=== PATIENT | male | born 1930 | race Caucasian/White ===

== ENCOUNTER → 2016-12-19 | Outpatient (CLI) | payer BC ==
[~2016-12-19] VITALS: Ht 167.6 cm; Wt 71.1 kg
[~2016-12-19] MED LIST: DUTA0.5C PO; LEVOXYL PO; LXP/20 PO; OMEP20CA9 PO
[2016-12-19 13:29] VITALS: BP 101/64; PULSE 79; Ht 167.6 cm; Wt 71.1 kg
== END | disposition home or self-care (01) ==
LOC: C.NEUR 13:18
PROVIDERS: ATTEND Internal Medicine Pulmonary Disease
DX: G47.30 Sleep apnea, unspecified (principal)

== ENCOUNTER → 2016-12-26 | Outpatient (CLI) | payer BC | END | disposition home or self-care (01) | LOC: C.RC 17:02 | PROVIDERS: ATTEND Physician Assistant | DX: G47.30 Sleep apnea, unspecified (principal); R53.83 Other fatigue ==

== ENCOUNTER → 2017-03-31 | Outpatient (CLI) | payer BC ==
[~2017-03-31] VITALS: Ht 170.2 cm; Wt 68.0 kg
[2017-03-31 13:25] VITALS: BP 115/74; PULSE 81; Ht 170.2 cm; Wt 68.0 kg
== END | disposition home or self-care (01) ==
LOC: C.NEUR 12:18
PROVIDERS: ATTEND Physician Assistant
DX: G47.30 Sleep apnea, unspecified (principal)

== ENCOUNTER → 2017-06-23 | Outpatient (CLI) | payer BC ==
--- NOTE | 2017-06-23 11:26 | DIAGNOSTIC IMAGING REPORT ---
CHEST 2 VIEWS ROUTINE CLINICAL HISTORY: R05 [id number] COMPARISON STUDY: 03/31/2014 FINDINGS: The cardiac and mediastinal contours remain stable. There is a left subclavian dual-chamber central venous pacemaker. There is no failure. There is no focal pulmonary consolidation. There are no pleural effusions.[ IMPRESSION: No active disease in the chest. Electronically signed by: Terrell Castillo M.D. 06/23/2017 11:25 AM Dictated Date/Time: 06/23/2017 11:25 AM
[2017-06-23 13:15] LABS: BASO % 0.4 %; BASO ABS # 0.03 K/uL (0-0.2); COMPLETE YES; EOS % 1.6 %; HEMATOCRIT 42.1 % (42-52); IG% 0.2 %; LYMPH % 21.1 %; LYMPH ABS # 1.79 K/uL (1.2-3.4); MEAN CELL VOLUME 98.1 fL (80-100); MEAN CORPUSCULAR HEMOGLOBIN 31.2 pg (25-34); MEAN CORPUSCULAR HGB CONC 31.8 g/dl (32-36); MEAN PLATELET VOLUME 10.9 fL (7.4-10.4); MONO % 10.4 %; NEUT % 66.3 %; PLATELET COUNT 232 K/uL (130-400); RED BLOOD COUNT 4.29 M/uL (4.7-6.1)
== END | disposition home or self-care (01) ==
LOC: C.RAD1850 11:10
PROVIDERS: ATTEND Physician Assistant
DX: R05 Cough (principal)

== ENCOUNTER 2017-08-12 07:25 | Emergency (ER) | payer BC ==
[~2017-08-12] VITALS: Ht 167.6 cm; Wt 63.0 kg
[2017-08-12] MEDS ORDERED: XYLOCAINE 1%/SOD BICARB 20 ML VIAL INFIL STA (07:32)
[2017-08-12 07:34] VITALS: TEMP 36.6; Ht 167.6 cm; Wt 63.0 kg
--- NOTE | 2017-08-12 07:42 | EMERGENCY ROOM VISIT NOTE ---
History Report prepared by Reza: Kathy Roawn Under the Supervision of: Dr. Jose Manuel Horn M.D. First contact with patient: 07:29 Stated Complaint: FALL History of Present Illness The patient is an 87 year old male who presents to the Emergency Room with complaints of a sudden fall that occurred prior to arrival. He currently rates his discomfort as a 1/10 in severity. Per EMS the patient arrives via ALS From the [facility] after a sudden fall. The patient states that he hit his head. He reports a headache and neck pain. The patient additionally notes right knee pain. He states that he is on Pradaxa. The patient stats that his Tetanus is up to date. Source of History: patient, EMS Onset: prior to arrival Position: other (global) Symptom Intensity: 10 Quality: other (fall) Timing: other (sudden) Associated Symptoms: + headache, + neck pain Note: Associated Symptoms: right knee pain Review of Systems See HPI for pertinent positives & negatives. A total of 10 systems reviewed and were otherwise negative. Past Medical & Surgical Medical Problems: (1) A-fib (2) Heart disease (3) Pneumonia Family History Diabetes mellitus Heart disease Social History Smoking Status: Never Smoker Smokeless Tobacco Use: No Alcohol Use: occasionally Marital Status: Housing Status: lives with significant other Occupation Status: retired Current/Historical Medications Scheduled Calcium Carbonate-Cholecalcife (Calcium Plus Vitamin D3), 1 CAP PO DAILY Dabigatran Etexilate Mesylate (Pradaxa), 1 CAP PO BID Dutasteride (Avodart), 0.5 MG PO DAILY Escitalopram Oxalate (Escitalopram Oxalate), 20 MG PO DAILY Flaxseed (Linseed) (Flaxseed Oil), 1 CAP PO DAILY Levothyroxine Sodium (Levothyroxine Sodium), 1 TAB PO DAILY Metoprolol Succ (Toprol Xl) (Toprol-Xl), 50 MG PO DAILY Omeprazole (Prilosec), 20 MG PO DAILY Allergies Coded Allergies: No Known Drug Allergy (Verified Allergy, Unknown, `, 08/12/17) Physical Exam Vital Signs Date Time Temp Pulse Resp B/P (MAP) Pulse Ox O2 Delivery O2 Flow Rate FiO2 08/12/17 08:46 87 16 119/71 94 08/12/17 08:31 87 16 119/71 94 Room Air 08/12/17 07:34 36.6 74 15 128/88 98 Room Air Physical Exam GENERAL: Patient is a healthy-appearing well-nourished male HEAD: 2, 2.6 cm lacerations to the left forehead with contusion. EYES: Ocular movements intact pupils equal and react to light OROPHARYNX mucous membranes are moist no exudates present no erythema or edema present NECK: Supple no nuchal rigidity CHEST: Good equal expansion LUNGS: Clear and equal to auscultation CARDIAC: Normal S1 and S2 ABDOMEN: Soft nontender no guarding BACK: No CVA tenderness EXTREMITIES: Good range of motion of the left knee, free from pain at ankle and hip No pain upon palpation normal muscle strength in all groups no clubbing cyanosis or edema NEURO: Patient is following commands and answering questions appropriately. Alert and oriented x3 Cranial Nerves 2-12 grossly intact Medical Decision & Procedures ER Provider Diagnostic Interpretation: CT results as stated below per my review and radiologist interpretation: HEAD WITHOUT CONTRAST (CT) CLINICAL HISTORY: 87 years-old Male presenting with Pt c/o hitting head, laceration and hematoma in the left anterior head. TECHNIQUE: Multidetector CT imaging of the head was performed without the use of intravenous contrast. IV contrast: None. A dose lowering technique was used consistent with the principles of ALARA (as low as reasonably achievable). COMPARISON: 03/31/2014. CT DOSE (mGy.cm): The estimated cumulative dose is 537.48 mGy.cm. FINDINGS: Freight Elevator Erector topogram: Unremarkable. Image quality limited by exclusion of the most inferior portions of the cerebellum. Proportional ventricular and sulcal prominence, likely age-related parenchymal volume loss. Periventricular and subcortical white matter hypoattenuation, nonspecific but likely indicative of chronic small vessel ischemic change. No mass effect or midline shift. No hemorrhage or acute territorial infarct. No extra-axial fluid collection. Paranasal sinuses and mastoid air cells clear. Calvarium intact. Left frontal subgaleal hematoma with overlying fascial subcutaneous tissue contusion and laceration. Absence of the [place] lenses. IMPRESSION: 1. No acute intracranial pathology. 2. Left frontal subgaleal hematoma, contusion, laceration. Electronically signed by: Jose Eduardo Kramer M.D. 08/12/2017 8:12 AM Dictated Date/Time: 08/12/2017 8:10 AM Medications Administered Medications (Trade) Dose Ordered Sig/Lissette Route Start Time Stop Time Status Last Admin Dose Admin Acetaminophen (Tylenol Tab) 1,000 mg NOW STAT PO 08/12/17 08:07 08/12/17 08:08 DC 08/12/17 08:31 1,000 MG Procedure Location: left forehead Total length: 2.6 cm Complexity: simple linear Verbal consent was obtained after the risks and benefits were explained, including but not limited to bleeding, scarring, infection, pain, and bone/joint /nerve damage. At this time, the risks of the procedure are less than the risks of NOT performing the procedure. A time out was taken and the correct patient and site identified. The skin was prepped with betadine. The target area was anesthetized with 4 ml of 1% lidocaine without epinephrine. Copious irrigation was performed using normal saline. The skin was re-prepped with betadine and a sterile field set. The wound was explored for foreign bodies and none found. Examination revealed no injury to deep structures such as tendons, bone, or significant blood vessels. Debridement was not performed. The wound edges were approximated using 3, 5-0 simple interrupted nylon sutures. Hemostasis and excellent approximation was achieved. Antibacterial ointment and a sterile dressing applied. Detailed wound care instructions and signs and symptoms of infection reviewed with the patient. No complications and the patient tolerated the procedure well. Location: left forehead Total length: 2.6 cm Complexity: simple linear Verbal consent was obtained after the risks and benefits were explained, including but not limited to bleeding, scarring, infection, pain, and bone/joint /nerve damage. At this time, the risks of the procedure are less than the risks of NOT performing the procedure. A time out was taken and the correct patient and site identified. The skin was prepped with betadine. The target area was anesthetized with 4 ml of 1% lidocaine without epinephrine. Copious irrigation was performed using normal saline. The skin was re-prepped with betadine and a sterile field set. The wound was explored for foreign bodies and none found. Examination revealed no injury to deep structures such as tendons, bone, or significant blood vessels. Debridement was not performed. The wound edges were approximated using 3, 5-0 simple interrupted nylon sutures. Hemostasis and excellent approximation was achieved. Antibacterial ointment and a sterile dressing applied. Detailed wound care instructions and signs and symptoms of infection reviewed with the patient. No complications and the patient tolerated the procedure well. ED Course 0730: Past medical records reviewed. The patient was evaluated in room A3. A complete history and physical examination was performed. 0732: Ordered Lidocaine HCl 20 ml INFIL. 0736: At this time I stapled the patient's head laceration. See procedure note for further detail. 0807: Ordered Tylenol Tab 1000 mg PO. 0818: I reevaluated the patient and he is resting comfortably. I discussed the exam findings with him and I discussed the treatment plan. He verbalized complete understanding and agreement. He is ready to go home. Medical Decision Differential diagnosis: Etiologies such as fracture, dislocation, intra-abdominal, pneumothorax, intrathoracic , intracranial, neurologic, as well as other traumatic pathologies were entertained. This is an 87-year-old male who presents emergency Department with a head contusion after falling out of bed this morning. The patient is neurologically intact however is on antiplatelet medication therefore he was sent for CAT scan of the head. This did not show any acute bleed. The patient did receive 1000 mg of Tylenol. His lacerations were closed as above. I felt that the patient was well enough to be discharged for follow-up with his primary care physician. Patient was in agreement with the treatment plan. Medication Reconcilliation Current Medication List: was personally reviewed by me Blood Pressure Screening Patient's blood pressure: Normal blood pressure Blood pressure disposition: Did not require urgent referral Impression Primary Impression: Contusion Additional Impressions: Laceration Fall Scribe Attestation The scribe's documentation has been prepared under my direction and personally reviewed by me in its entirety. I confirm that the note above accurately reflects all work, treatment, procedures, and medical decision making performed by me. Departure Information Dispostion Home / Self-Care Referrals Jose Eduardo Kulkarni M.D. (PCP) Forms HOME CARE DOCUMENTATION FORM, IMPORTANT VISIT INFORMATION, School Instructions, Work Instructions Patient Instructions ED Head Injury Closed, ED Laceration Sure Close, ED Scar Tips to Minimize, Falls Prevent Home, My [facility], Sutr Care Additional Instructions Sutures out in 7-10 days Return if you develop severe head pain, vomiting or loss of balance You have been examined and treated today on an emergency basis only. This is not a substitute for, or an effort to provide, complete comprehensive medical care. It is impossible to recognize and treat all injuries or illnesses in a single emergency department visit. It is therefore important that you follow up closely with Dr Kulkarni. Call as soon as possible for an appointment. Thank you for your time and consideration. I look forward to speaking with you again soon. Please don't hesitate to call us if you have any questions. Problem Qualifiers Primary Impression: Contusion Encounter type: initial encounter Contusion area: head Contusion of head detail: unspecified part of head Qualified Codes: S00.93XA - Contusion of unspecified part of head, initial encounter Additional Impressions: Fall Encounter type: initial encounter Qualified Codes: W19.XXXA - Unspecified fall, initial encounter
[2017-08-12] MEDS ORDERED: ACETAMINOPHEN 500 MG TAB PO STA (08:07)
--- NOTE | 2017-08-12 08:13 | DIAGNOSTIC IMAGING REPORT ---
HEAD WITHOUT CONTRAST (CT) CLINICAL HISTORY: 87 years-old Male presenting with Pt c/o hitting head, laceration and hematoma in the left anterior head. TECHNIQUE: Multidetector CT imaging of the head was performed without the use of intravenous contrast. IV contrast: None. A dose lowering technique was used consistent with the principles of ALARA (as low as reasonably achievable). COMPARISON: 03/31/2014. CT DOSE (mGy.cm): The estimated cumulative dose is 537.48 mGy.cm. FINDINGS: Jig Bore Tool Maker topogram: Unremarkable. Image quality limited by exclusion of the most inferior portions of the cerebellum. Proportional ventricular and sulcal prominence, likely age-related parenchymal volume loss. Periventricular and subcortical white matter hypoattenuation, nonspecific but likely indicative of chronic small vessel ischemic change. No mass effect or midline shift. No hemorrhage or acute territorial infarct. No extra-axial fluid collection. Paranasal sinuses and mastoid air cells clear. Calvarium intact. Left frontal subgaleal hematoma with overlying fascial subcutaneous tissue contusion and laceration. Absence of the [place] lenses. IMPRESSION: 1. No acute intracranial pathology. 2. Left frontal subgaleal hematoma, contusion, laceration. Electronically signed by: Jose Eduardo Kramer M.D. 08/12/2017 8:12 AM Dictated Date/Time: 08/12/2017 8:10 AM
[2017-08-12] MEDS ORDERED: DABI150C PO (08:16)
[2017-08-12] MEDS ORDERED: FLAX100024 PO (08:16)
[2017-08-12] MEDS ORDERED: CALCCAP15 PO (08:16)
[2017-08-12] MEDS ORDERED: METO50TA7 PO (08:16)
[2017-08-12] MEDS ORDERED: LEVO75TA5 PO (08:16)
[2017-08-12 08:46] VITALS: BP 119/71; PULSE 87; O2SAT 94
== END 2017-08-12 08:47 | disposition home or self-care (01) ==
LOC: EDBD 07:25 → C.EDA 07:26
DX: S01.81XA Laceration without foreign body of other part of head, initial encounter (principal); W06.XXXA Fall from bed, initial encounter; W22.8XXA Striking against or struck by other objects, initial encounter; I48.91 Unspecified atrial fibrillation; Z87.01 Personal history of pneumonia (recurrent); Z83.3 Family history of diabetes mellitus; Z82.49 Family history of ischemic heart disease and other diseases of the circulatory system; Z79.01 Long term (current) use of anticoagulants

== ENCOUNTER → 2017-10-05 | Outpatient (CLI) | payer BC ==
[~2017-10-05] VITALS: Ht 170.2 cm; Wt 68.4 kg
[~2017-10-05] MED LIST changes: +CALCCAP15 PO; +DABI150C PO; +FLAX100024 PO; +LEVO75TA5 PO; -LEVOXYL PO; +METO50TA8 PO
[2017-10-05 13:58] VITALS: BP 102/71; PULSE 76; Ht 170.2 cm; Wt 68.4 kg
== END | disposition home or self-care (01) ==
LOC: C.NEUR 12:47
PROVIDERS: ATTEND Physician Assistant
DX: G47.30 Sleep apnea, unspecified (principal)

== ENCOUNTER → 2018-02-05 | Outpatient (CLI) | payer BC ==
[2018-02-05 09:52] LABS: BASO % 0.8 %; BASO ABS # 0.06 K/uL (0-0.2); EOS % 2.5 %; EOS ABS # 0.19 K/uL (0-0.5); HEMATOCRIT 43.1 % (42-52); HEMOGLOBIN 14.7 g/dL (14.0-18.0); IG# 0.02 K/uL (0.00-0.02); LYMPH % 26.8 %; LYMPH ABS # 2.04 K/uL (1.2-3.4); MEAN CELL VOLUME 97.7 fL (80-100); MEAN CORPUSCULAR HEMOGLOBIN 33.3 pg (25-34); MEAN CORPUSCULAR HGB CONC 34.1 g/dl (32-36); MEAN PLATELET VOLUME 11.2 fL (7.4-10.4); MONO % 13.8 %; MONO ABS # 1.05 K/uL (0.11-0.59); NEUT % 55.8 %; NEUT ABS # 4.24 K/uL (1.4-6.5); PLATELET COUNT 215 K/uL (130-400); RED CELL DISTRIBUTION WIDTH CV 12.8 % (11.5-14.5); RED CELL DISTRIBUTION WIDTH SD 46.1 fL (36.4-46.3)
[2018-02-05 10:06] LABS: BLOOD UREA NITROGEN 20 mg/dl (7-18); CREATININE 1.22 mg/dl (0.60-1.40); GLUCOSE 114 mg/dl (70-99); SODIUM 140 mmol/L (136-145)
[2018-02-05 10:07] LABS: ALBUMIN 3.7 gm/dl (3.4-5.0); ALKALINE PHOSPHATASE 49 U/L (45-117); ALT/SGPT 23 U/L (12-78); AST/SGOT 21 U/L (15-37); CALCIUM 8.9 mg/dl (8.5-10.1); CARBON DIOXIDE 29 mmol/L (21-32); POTASSIUM 4.1 mmol/L (3.5-5.1); TOTAL PROTEIN 7.7 gm/dl (6.4-8.2)
== END | disposition home or self-care (01) ==
LOC: C.LABVPSUW 09:28
PROVIDERS: ATTEND Internal Medicine Critical Care Medicine
DX: E11.9 Type 2 diabetes mellitus without complications (principal); E03.9 Hypothyroidism, unspecified; D64.9 Anemia, unspecified; R53.83 Other fatigue; G70.00 Myasthenia gravis without (acute) exacerbation

== ENCOUNTER → 2018-02-12 | Outpatient (CLI) | payer BC ==
--- NOTE | 2018-02-12 12:07 | SWALLOWING EVALUATION ---
HISTORY: This 87 year-old man, from home, was referred for a VFSS at [facility] secondary to complaints of dysphagia and coughing. Currently the patient's diet level is regular with thins. Pt. has a past medical history significant for heart disease, A-Fib, and pneumonia. He has not seen speech therapy in the past. PROCEDURE: The patient was seen in the Radiology Department of [facility] for the VFSS. Cursory examination of the oral cavity revealed adequate dentition. Movement of the articulators was WNL. The patient was seated on a standard chair and was viewed in both the Anterior-Posterior (A-P) and Lateral planes. Volitional phonation exercises completed in the A-P plane revealed bilateral vocal fold movement and vocal intensity within functional limits. In the lateral plane, the patient was given the following barium-infused boluses: 1 tsp thin barium with oral hold 1x, self presented single cup swallow-thin barium 1x, self presented serial cup swallow 1x. 1 cup drink of thins with chin tuck 1x. 1 tsp nectar thick barium with oral hold 1x, self presented single cup swallow- nectar thick barium 1x. 1 cup drink with chin tuck 1x. 1 tsp barium pudding 1x, and 1 cracker with barium pudding 1x. Esophageal scan was completed with 1 tsp of barium infused pudding. RESULTS: Oral Phase: Pt. had no labial escape of any food or liquid items presented. Pt. demonstrated a cohesive bolus between tongue and palatal seal. Timely and efficient chewing and mashing was observed with all consistencies as well as brisk tongue motion and complete oral clearance. Initiation of pharyngeal swallow began with bolus head in the valleculae. Overall WFL for oral phase of swallow. Pharyngeal Phase: Soft Palate Elevation was complete for all boluses. Laryngeal elevation and movement of thyroid cartilage was slightly reduced however complete approximation of arytenoids to epiglottic base. Anterior Hyoid excursion was reduced and although complete epiglottic inversion was observed at times it was delayed. Laryngeal Vestibular closure was reduced with a column of barium noted in laryngeal vestibule and in the valleculae. This was cleared 75% with cues to complete chin tuck. Tongue base retraction was noted with all consistencies and tongue base made effective contact with posterior pharyngeal wall throughout study. Moderate pharyngeal residue was observed however reduced with chin tuck. Overall mild pharyngeal phase dysphagia characterized by redueced laryngeal elevation and contraction resulting in pharyngeal and vallecular residue that was only able to be cleared 75% by chin tuck. . Pt. did NOT aspirate or penetrate on food items presented. Esophageal Phase: Opening and closing of the UES noted. Pt. had notable narrowing of the esophagus with retrograde motion. Pt. presented with Esophageal dysfunction. SUMMARY/RECOMMENDATIONS: Overall pt. presented as WFL for oral-pharyngeal stages of the swallow. Pt. presented with mild pharyngeal dysphagia and notable Esophageal dysfunction. Recommendin. SLIPPERY moist regular diet with thin liquids. 2. *Chin tuck frequently throughout meal to clear pharyngeal cavity. 3. GERD precautions - upright for 30 min after all intake, no intake 30 min before bed, keep head of bed elevated at least 30 degrees at all times, alternate consistencies. 4. Safe swallow strategies (small bites, small sips, slow rate) 5. Aspiration precautions (alternate consistencies, alert and upright for all intake.) 6. Consideration for GI consult if pt. continues to have issues. Pt. was given written instructions on diet, Chin tuck, GERD and aspiration precautions. Thank you for referral of this patient. Please contact me at if any additional information is needed.
--- NOTE | 2018-02-12 12:56 | DIAGNOSTIC IMAGING REPORT ---
VIDEO SWALLOW CLINICAL HISTORY: DYSPHAGIA COMPARISON STUDY: No previous studies for comparison. Fluoroscopy time: 2.3 minutes. FINDINGS: No aspiration was identified with thin liquids, nectar thick liquids, pudding or crackers with paste. Moderate esophageal dysmotility was noted. There were significant residuals within the vallecula with multiple consistencies. Epiglottic inversion and laryngeal elevation were within normal limits. IMPRESSION: 1. No tracheal aspiration identified. 2. Moderate residuals within the vallecula with multiple consistencies. 3. Moderate esophageal dysmotility. 4. Full recommendations by speech pathology to follow. Electronically signed by: James Guido M.D. 02/12/2018 12:55 PM Dictated Date/Time: 02/12/2018 12:51 PM
== END | disposition home or self-care (01) ==
LOC: C.RAD 10:37
PROVIDERS: ATTEND Internal Medicine Critical Care Medicine
DX: R13.10 Dysphagia, unspecified (principal)